=== PATIENT | female | born 1985 | race Caucasian/White ===

== ENCOUNTER 2017-10-11 12:50 | Inpatient (IN) | payer OTHER ==
[~2017-10-11] VITALS: Ht 170.2 cm; Wt 83.0 kg
[~2017-10-11 12:50] MED LIST: PRENATALES
[2017-10-12] MEDS ORDERED: PRENATAL TABLE1 EAC1 PO (08:06)
== END 2017-10-14 12:42 | disposition home or self-care (01) | DRG 775 ==
LOC: LDR 10-12 06:34 → OB/GYN 10-12 16:30 → LDR 10-27 12:49
PROC: 10E0XZZ Delivery of Products of Conception, External Approach (ICD-10-PCS; principal; 2017-10-12)
PROC: 4A1HXCZ Monitoring of Products of Conception, Cardiac Rate, External Approach (ICD-10-PCS; 2017-10-12)
DX: O80 Encounter for full-term uncomplicated delivery (principal); Z3A.39 39 weeks gestation of pregnancy; Z37.0 Single live birth

== ENCOUNTER 2020-07-23 11:09 | Day surgery (SDC) | payer OTHER ==
[~2020-07-23 11:09] MED LIST changes: +PRENATAL TABLE1 EAC1 PO
== END 2020-07-23 18:20 | disposition home or self-care (01) ==
LOC: CIR.AMB 11:09
PROVIDERS: ATTEND Obstetrics & Gynecology
DX: N87.0 Mild cervical dysplasia (principal); Z20.828 Contact with and (suspected) exposure to other viral communicable diseases

== ENCOUNTER 2020-07-24 02:58 | Inpatient (IN) | payer OTHER ==
[~2020-07-24] VITALS: Ht 167.6 cm; Wt 77.1 kg
== END 2020-07-25 10:44 | disposition home or self-care (01) | DRG 920 ==
LOC: ER 02:58 → SEC-K 06:48 → OB/GYN 06:48 → O/R 11:30 → OB/GYN 14:09
PROVIDERS: ADMIT Obstetrics & Gynecology; ATTEND Obstetrics & Gynecology
PROC: BU4CZZZ Ultrasonography of Uterus and Ovaries (ICD-10-PCS; 2020-07-24)
PROC: 0UJD7ZZ Inspection of Uterus and Cervix, Via Natural or Artificial Opening (ICD-10-PCS; principal; 2020-07-24 08:30)
DX: N99.820 Postprocedural hemorrhage of a genitourinary system organ or structure following a genitourinary system procedure (principal); T81.598A Other complications of foreign body accidentally left in body following other procedure, initial encounter; Z20.822 Contact with and (suspected) exposure to COVID-19; Z98.890 Other specified postprocedural states